=== PATIENT | male | born 1945 | race Caucasian/White ===

== ENCOUNTER 2016-12-21 18:47 | Emergency (ER) | payer MEDICARE, BC ==
[2016-12-21] MEDS ORDERED: Sodium Chloride 0.9% 5 ML Syringe FLUSH PRN (19:13)
--- NOTE | 2016-12-21 19:33 | EDM.PDOC ---
ED HPI GENERAL MEDICAL PROBLEM - General Chief Complaint: Neurological Problem Stated Complaint: MEMORY LOSS Time Seen by Provider: 12/21/16 19:21 Source of Information: Reports: Patient, Family History Limitations: Reports: No Limitations, Altered Mental Status - History of Present Illness INITIAL COMMENTS - FREE TEXT/NARRATIVE: 71 YO WM presents to ER with sudden onset amnesia. Family states he was last seen "normal" around 4pm today. Pt went out on his property deer hunting and after shooting a deer he called his son to tell him he shot the deer. Pt brought the deer home and was cleaning the deer when he kept asking the same questions over and over. Pt has intact nursing home memory per family. Pt denies any headache, head injury, neck pain. Pt denies any chest pain, shortness of breath or abdominal pain. Pt denies alcohol use or abuse. Pt alert and oriented x 3 but has acute onset amnesia to events of the last few days. Onset Date: 12/21/16 Onset Time: 16:00 Severity: Mild Improves with: Reports: None Worsens with: Reports: None Associated Symptoms: Reports: Confusion. Denies: Chest Pain, Cough, cough w sputum, Diaphoresis, Fever/Chills, Headaches, Loss of Appetite, Malaise, Nausea/ Vomiting, Rash, Seizure, Shortness of Breath, Syncope, Weakness - Related Data Allergies Allergy/AdvReac Type Severity Reaction Status Date / Time No Known Allergies Allergy Verified 12/21/16 19:07 Home Meds: Home Meds Aspirin 325 mg PO DAILY 12/13/14 [History] Carvedilol 12.5 mg PO BID 12/13/14 [History] Doxazosin Mesylate [Cardura] 4 mg PO DAILY 12/13/14 [History] Finasteride 5 mg PO DAILY 12/13/14 [History] L.acidoph,Paracasei, B.lactis [Probiotic] 1 cap PO DAILY 12/21/16 [History] Omeprazole [Omeprazole] 20 mg PO DAILY 12/21/16 [History] Simvastatin [Zocor] 40 mg PO BEDTIME 12/21/16 [History] Past Medical History Cardiovascular History: Reports: High Cholesterol, Hypertension, [place], Stents Gastrointestinal History: Reports: Diverticulosis, GERD Musculoskeletal History: Reports: Arthritis Endocrine/Metabolic History: Reports: Obesity/BMI 30+ - Past Surgical History HEENT Surgical History: Reports: Cataract Surgery Social & Family History - Tobacco Use Smoking Status *Q: Former Smoker Years of Tobacco use: 30 Packs/Tins Daily: 1 Used Tobacco, but Quit: Yes - Alcohol Use Days Per Week of Alcohol Use: 3 Number of Drinks Per Day: 2 Total Drinks Per Week: 6 - Recreational Drug Use Recreational Drug Use: No ED ROS GENERAL - Review of Systems Review Of Systems: See Below Constitutional: Reports: No Symptoms HEENT: Reports: No Symptoms Respiratory: Reports: No Symptoms Cardiovascular: Reports: No Symptoms Endocrine: Reports: No Symptoms GI/Abdominal: Reports: No Symptoms : Reports: No Symptoms Musculoskeletal: Reports: No Symptoms Skin: Reports: No Symptoms Neurological: Reports: Confusion. Denies: Dizziness, Headache, Numbness, Paresthesia, Pre-Existing Deficit, Seizure, Syncope, Tingling, Tremors, Trouble Speaking, Difficulty Walking, Weakness, Change in Speech, Gait Disturbance Psychiatric: Reports: No Symptoms, Confusion Hematologic/Lymphatic: Reports: No Symptoms Immunologic: Reports: No Symptoms - Physical Exam Exam: See Below Exam Limited By: Altered Mental Status General Appearance: Alert, WD/WN, No Apparent Distress Eye Exam: Bilateral Eye: EOMI, Normal Inspection, PERRL Ears: Normal External Exam, Normal Canal, Hearing Grossly Normal, Normal TMs Nose: Normal Inspection, Normal Mucosa, No Blood Throat/Mouth: Normal Inspection, Normal Lips, Normal Teeth, Normal Gums, Normal Oropharynx, Normal Voice, No Airway Compromise Head Exam: Atraumatic, Normocephalic Neck: Normal Inspection, Supple, Non-Tender, Full Range of Motion Respiratory/Chest: No Respiratory Distress, Lungs Clear, Normal Breath Sounds, No Accessory Muscle Use, Chest Non-Tender Cardiovascular: Normal Peripheral Pulses, Regular Rate, Rhythm, No Edema, No Gallop, No JVD, No Murmur, No Rub GI/Abdominal: Normal Bowel Sounds, Soft, Non-Tender, No Organomegaly, No Distention, No Abnormal Bruit, No Mass Neuro Exam (Abbreviated): Alert, Oriented, CN II-XII Intact, Normal Gait, Normal Reflexes, No Motor/Sensory Deficits, Confused, Memory Loss Recent Events Back Exam: Normal Inspection, Full Range of Motion, NT Extremities: Normal Inspection, Normal Range of Motion, Non-Tender, No Pedal Edema, Normal Capillary Refill Psychiatric: Normal Affect, Normal Mood Skin Exam: Warm, Dry, Intact, Normal Color, No Rash EKG INTERPRETATION EKG Date: 12/21/16 Time: 20:20 Rhythm: NSR Rate (Beats/Min): 89 [place]: Normal P-Wave: Present QRS: Normal ST-T: Normal QT: Normal Comparison: NA - No Prior EKG Course - Vital Signs Last Recorded V/S: Last Vital Signs Temp 36.9 C 12/21/16 20:08 Pulse 92 12/21/16 20:08 Resp 16 12/21/16 20:08 BP 162/83 H 12/21/16 20:08 Pulse Ox 98 12/21/16 20:08 - Orders/Labs/Meds Orders: Active Orders 24 hr Category Date Time Status EKG Documentation Completion [RC] ASDIRECTED Care 12/21/16 19:11 Active Peripheral IV Care [RC] . DIRECTED Care 12/21/16 19:13 Active CXR [Chest 1V Frontal] [CR] Stat Exams 12/21/16 19:12 Taken Chest 2V [CR] Stat Exams 12/21/16 19:39 Ordered Head wo Cont [CT] Stat Exams 12/21/16 19:13 Taken Sodium Chloride 0.9% [Syrex Flush] Med 12/21/16 19:13 Active 5 ml FLUSH Q8HR PRN Peripheral IV Insertion Adult [OM.PC] Routine Oth 12/21/16 19:13 Ordered EKG 12 Lead [EK] Routine Ther 12/21/16 19:10 Ordered Medication Orders Sodium Chloride (Syrex Flush) 5 ml FLUSH Q8HR PRN PRN Reason: Keep Vein Open Labs: Laboratory Tests 12/21/16 12/21/16 12/21/16 Range/Units 19:10 19:10 19:10 WBC 7.7 (5.0-10.0) 10^3/uL RBC 5.36 (4.50-6.00) 10^6/uL Hgb 15.6 (13.0-17.0) g/dL Hct 48.2 (40.0-52.0) % MCV 89.9 (82.0-92.0) fL MCH 29.1 (27.0-31.0) pg MCHC 32.4 (32.0-36.0) g/dL RDW 12.1 (11.5-14.5) % Plt Count 173 (150-300) 10^3/uL MPV 7.7 (7.4-10.4) fL Neut % (Auto) 63.9 (50.0-70.0) % Lymph % (Auto) 21.0 (20.0-40.0) % [place] % (Auto) 11.4 H (2.0-8.0) % Eos % (Auto) 3.3 H (1.0-3.0) % Baso % (Auto) 0.4 (0.0-1.0) % Neut # (Auto) 4.9 (2.5-7.0) 10^3/uL Lymph # (Auto) 1.6 (1.0-4.0) 10^3/uL [place] # (Auto) 0.9 H (0.1-0.8) 10^3/uL Eos # (Auto) 0.3 (0.1-0.3) 10^3/uL Baso # (Auto) 0.0 (0.0-0.1) 10^3/uL Sodium 140 (136-145) mmol/L Potassium 4.1 (3.3-5.3) mmol/L Chloride 106 (98-115) mmol/L Carbon Dioxide 25.9 (21.0-32.0) mmol/L BUN 23 (6-25) mg/dL Creatinine 1.18 H (0.51-1.17) mg/dL Est Cr Clr Drug Dosing 56.36 mL/min Estimated GFR (MDRD) > 60 mL/min Glucose 113 H (70-110) mg/dL Calcium 9.2 (8.7-10.3) mg/dL Total Bilirubin 0.4 (0.2-1.0) mg/dL AST 40 H (15-37) U/L ALT 78 (12-78) U/L Alkaline Phosphatase 58 (46-116) IU/L Ammonia (11-32) umol/L Creatine Kinase 90 (26-276) U/L CK-MB (CK-2) 0.40 (0.00-4.30) ng/mL Troponin I 0.10 H* (0.00-0.070) ng/mL Total Protein 6.9 (6.4-8.2) g/dL Albumin 3.68 (3.00-4.80) g/dL Specimen Type Urine Color (YELLOW) Urine Appearance (CLEAR) Urine pH (5.0-9.0) Ur Specific [place] (1.005-1.030) Urine Protein (NEGATIVE) mg/dL Urine Glucose (UA) (NEGATIVE) mg/dL Urine Ketones (NEGATIVE) mg/dL Urine Occult Blood (NEGATIVE) Urine Nitrite (NEGATIVE) Urine Bilirubin (NEGATIVE) Urine Urobilinogen (0.2-1.0) E.U./dL Ur Leukocyte Esterase (NEGATIVE) Urine RBC /HPF Urine WBC /HPF Ur Epithelial Cells /LPF Urine Bacteria (NONE TO FEW) /HPF Urine Mucus (NEGATIVE) /LPF 12/21/16 12/21/16 Range/Units 19:10 19:30 WBC (5.0-10.0) 10^3/uL RBC (4.50-6.00) 10^6/uL Hgb (13.0-17.0) g/dL Hct (40.0-52.0) % MCV (82.0-92.0) fL MCH (27.0-31.0) pg MCHC (32.0-36.0) g/dL RDW (11.5-14.5) % Plt Count (150-300) 10^3/uL MPV (7.4-10.4) fL Neut % (Auto) (50.0-70.0) % Lymph % (Auto) (20.0-40.0) % [place] % (Auto) (2.0-8.0) % Eos % (Auto) (1.0-3.0) % Baso % (Auto) (0.0-1.0) % Neut # (Auto) (2.5-7.0) 10^3/uL Lymph # (Auto) (1.0-4.0) 10^3/uL [place] # (Auto) (0.1-0.8) 10^3/uL Eos # (Auto) (0.1-0.3) 10^3/uL Baso # (Auto) (0.0-0.1) 10^3/uL Sodium (136-145) mmol/L Potassium (3.3-5.3) mmol/L Chloride (98-115) mmol/L Carbon Dioxide (21.0-32.0) mmol/L BUN (6-25) mg/dL Creatinine (0.51-1.17) mg/dL Est Cr Clr Drug Dosing mL/min Estimated GFR (MDRD) mL/min Glucose (70-110) mg/dL Calcium (8.7-10.3) mg/dL Total Bilirubin (0.2-1.0) mg/dL AST (15-37) U/L ALT (12-78) U/L Alkaline Phosphatase (46-116) IU/L Ammonia 11 (11-32) umol/L Creatine Kinase (26-276) U/L CK-MB (CK-2) (0.00-4.30) ng/mL Troponin I (0.00-0.070) ng/mL Total Protein (6.4-8.2) g/dL Albumin (3.00-4.80) g/dL Specimen Type Urinvoid Urine Color Yellow (YELLOW) Urine Appearance Clear (CLEAR) Urine pH 5.5 (5.0-9.0) Ur Specific [place] 1.020 (1.005-1.030) Urine Protein Negative (NEGATIVE) mg/dL Urine Glucose (UA) Negative (NEGATIVE) mg/dL Urine Ketones Negative (NEGATIVE) mg/dL Urine Occult Blood Negative (NEGATIVE) Urine Nitrite Negative (NEGATIVE) Urine Bilirubin Negative (NEGATIVE) Urine Urobilinogen 0.2 (0.2-1.0) E.U./dL Ur Leukocyte Esterase Negative (NEGATIVE) Urine RBC 0-5 /HPF Urine WBC Not seen /HPF Ur Epithelial Cells Rare /LPF Urine Bacteria Not seen (NONE TO FEW) /HPF Urine Mucus Rare H (NEGATIVE) /LPF Meds: Medications Generic Name Dose Route Start Last Admin Trade Name Freq PRN Reason Stop Dose Admin Sodium Chloride 5 ml 12/21/16 19:13 Syrex Flush FLUSH Q8HR PRN Keep Vein Open Discontinued Medications Generic Name Dose Route Start Last Admin Trade Name Freq PRN Reason Stop Dose Admin Nitroglycerin Confirm 12/21/16 20:29 Nitro-Bid 2% Administered 12/21/16 20:30 Dose 1 gm .ROUTE .STK-MED ONE - Radiology Interpretation Free Text/Narrative:: CT brain- NAD CXR- NAD Departure - Departure Time of Disposition: 20:32 Disposition: DC/Tfer to Acute Hospital 02 Condition: Fair Clinical Impression: Amnesia memory loss, Elevated troponin I level - Discharge Information Referrals: Vincent Sloan MD [Primary Care Provider] - Forms: ED Department Discharge, Interfacility Transfer EMTALA - My Orders Last 24 Hours: My Active Orders 12/21/16 19:10 EKG 12 Lead [EK] Routine 12/21/16 19:11 EKG Documentation Completion [RC] ASDIRECTED 12/21/16 19:12 CXR [Chest 1V Frontal] [CR] Stat 12/21/16 19:13 Peripheral IV Care [RC] . DIRECTED Head wo Cont [CT] Stat Sodium Chloride 0.9% [Syrex Flush] 5 ml FLUSH Q8HR PRN Peripheral IV Insertion Adult [OM.PC] Routine 12/21/16 19:39 Chest 2V [CR] Stat - Assessment/Plan Last 24 Hours: My Active Orders 12/21/16 19:10 EKG 12 Lead [EK] Routine 12/21/16 19:11 EKG Documentation Completion [RC] ASDIRECTED 12/21/16 19:12 CXR [Chest 1V Frontal] [CR] Stat 12/21/16 19:13 Peripheral IV Care [RC] . DIRECTED Head wo Cont [CT] Stat Sodium Chloride 0.9% [Syrex Flush] 5 ml FLUSH Q8HR PRN Peripheral IV Insertion Adult [OM.PC] Routine 12/21/16 19:39 Chest 2V [CR] Stat Assessment:: 1. Acute transient Amnesia 2. elevated trop I 3. confusion Plan: 1. transfer to [facility] 2. nitro/ASA 3. supportive care 4. Dr Maurice fontaine MD
[2016-12-21 20:12] VITALS: BP 162/83
[2016-12-21 20:16] LABS: CHLORIDE,CL 106 mmol/L (98-115); SODIUM,NA 140 mmol/L (136-145)
[2016-12-21] MEDS ORDERED: Nitroglycerin 2% Oint 1 GM UD Packet ONE (20:29)
[2016-12-21] MEDS ORDERED: Nitroglycerin 2% Oint 1 GM UD Packet TOP ONE (20:35)
== END 2016-12-21 21:00 ==
LOC: KA.ED 18:47
DX: R41.3 Other amnesia (principal); Z87.891 Personal history of nicotine dependence; R79.89 Other specified abnormal findings of blood chemistry
CPT/HCPCS: 70450; 71010; 71020; 80053; 81001; 82140; 82550; 82553; 84484; 85025; 99285; A9270; 93005